=== PATIENT | male | born 1955 | race Caucasian/White ===

== ENCOUNTER 2016-05-11 10:48 | Inpatient (IN) | payer BC, OTHER ==
[2016-05-10 07:36] LABS: HEMATOCRIT 48.2 % (36-54); HEMOGLOBIN 15.7 g/dL (14.0-18.0); MEAN CORPUSCULAR HEMOGLOBIN 30 pg (27-31); MEAN CORPUSCULAR HGB CONC 33 % (32-36); MEAN CORPUSCULAR VOLUME 91 fL (79.0-98.0); PLATELET COUNT (AUTO) 499 K/uL (130-430); RED BLOOD CELL COUNT(AUTO) 5.29 MIL/uL (4.2-6.2)
[2016-05-10 07:38] LABS: WHITE BLOOD COUNT (AUTO) 21.5 K/uL (4.8-10.8)
[2016-05-10 07:48] LABS: ALBUMIN 3.9 g/dL (3.4-4.8); CALCIUM 9.7 mg/dL (8.4-11.0); CREATININE 1.33 mg/dL (0.55-1.30); POTASSIUM 3.8 mmol/L (3.5-5.1); TOTAL BILIRUBIN 0.2 mg/dL (0.0-1.0); TOTAL PROTEIN, SERUM 7.8 g/dL (6.4-8.3)
[2016-05-10 08:22] LABS: ATYPICAL LYMPHOCYTES % 0 % (0-0); BAND % (MANUAL) 5 % (0-6); BASOPHILS % (MANUAL) 0 % (0-2); EOSINOPHILS % (MANUAL) 0 % (0-7); LYMPHOCYTES % (MANUAL) 24 % (20-46); MONOCYTES % (MANUAL) 8 % (0-11)
[~2016-05-11] VITALS: Ht 185.4 cm; Wt 91.6 kg
[~2016-05-11 10:48] MED LIST: ASPI-1063 PO; HYDR25TA4 PO; LOSA50TA3 PO; POTA20TA83 PO; SIMV20TA2 PO
[2016-05-11] MEDS ORDERED: CEFOXITIN 2 GM/DEXTROSE,ISO 50 ML (PREMIX) IV ONE (12:00)
[2016-05-11] MEDS ORDERED: ONDANSETRON HCL 4 MG/2 ML VIAL ONE (14:00)
[2016-05-11] MEDS ORDERED: KETOROLAC TROMETHAMINE 30 MG VIAL ONE (14:00)
[2016-05-11] MEDS ORDERED: ROCURONIUM BROMIDE 10 MG/ML (ZEMURON) ONE (14:00)
[2016-05-11] MEDS ORDERED: SEVOFLURANE 15 MIN GAS INH ONE (14:00)
[2016-05-11] MEDS ORDERED: PROPOFOL 200MG/ 20ML VIAL (DIPRIVAN) IV ONE (14:00)
[2016-05-11] MEDS ORDERED: MIDAZOLAM HCL 5 MG/5 ML VIAL ONE (14:00)
[2016-05-11] MEDS ORDERED: DEXAMETHASONE SOD PHOSPHATE 4 MG/ML VIAL ONE (14:00)
[2016-05-11] MEDS ORDERED: fentaNYL CITRATE 250 MCG/5 ML AMP ONE (14:00)
[2016-05-11] MEDS ORDERED: BUPIVACAINE LIPOSOME/PF 266 MG/20 ML VIAL INFIL ONE (14:45)
[2016-05-11] MEDS ORDERED: LR 1,000 ML IV SCH (16:18)
[2016-05-11] MEDS ORDERED: MEPERIDINE HCL/PF 25 MG/ML DISP.SYRIN IVP PRN (16:30)
[2016-05-11] MEDS ORDERED: HYDROmorphone 2 MG/ML VIAL IVP PRN ×2 (16:30)
[2016-05-11] MEDS ORDERED: HYDROmorphone 1 MG INJ. 1 MG/ML AMPUL IVP PRN (16:30)
[2016-05-11] MEDS ORDERED: ONDANSETRON HCL 4 MG/2 ML VIAL IVP PRN (18:45)
[2016-05-11] MEDS ORDERED: MORPHINE 4 MG/ML INJ. SYRINGE IVP PRN (18:45)
[2016-05-11] MEDS ORDERED: ACETAMINOPHEN 325 MG TABLET PO PRN ×2 (18:45)
[2016-05-11] MEDS ORDERED: HYDROcodone/ACETAMIN 5-325 MG TAB (NORCO/ VICODIN) PO PRN (18:45)
--- NOTE | 2016-05-11 19:32 | NUR ---
Admission Note Received patient from ER with diagnosis of diverticulis. Initial Plan of Care discussed-patient verbalized understanding. Family at bedside. Oriented to room, call light, pain management and safety. Patient recieved form OR. stable, and vital signs stable.
--- NOTE | 2016-05-11 20:20 | NUR ---
Assessment Patient denies any pain or discomfort at this time. Patient is alert and oriented. Patient noted with 5 small abdominal incision, covered in dressing, cdi. Educated patient on deep breathing, able to show proper demonstration. IV site patent with no signs or symptoms of infiltration noted at this time. Educated patient on calling for assistance, verbalized understanding. Call light in hand. Fall and safety precautions in place. Will continue to monitor.
[2016-05-11] MEDS: LR 1,000 ML IV SCH (21:06)
[2016-05-11] MEDS: cefOXitin SODIUM 2 GM in D5W 100 ML IV SCH (21:07)
--- NOTE | 2016-05-11 22:30 | NUR ---
RN ROUNDS Patient in bed at this time resting, Patient has a Cantrell that was present upon admission, draining yellow urine to gravity. Patient denies any pain or discomfort at this time. Call light in hand. Fall and safety precautions in place. Will continue to monitor.
--- NOTE | 2016-05-11 23:33 | NUR ---
RN NOTE Patient stated that he felt like he needed to have a bowel movement. Assisted patient onto a bedpan, patient noted to have blood with clots come out of rectum. Noted to be about 450mL, will page doctor to make him aware.
--- NOTE | 2016-05-11 23:34 | NUR ---
PAGED PAGED TERRY BARTLETT AT [phone] SPOKE WITH SAMMIE.
--- NOTE | 2016-05-11 23:39 | NUR ---
MD CALL BACK Spoke with Dr. Irvin regarding patients blood noted with clots after patient stated he felt like he had to have a bowel movement. Per Dr. Irvin, its normal for patient to have blood with clots come out of rectum after surgery.
[2016-05-12] VITALS (12 sets, daily range): BP systolic 79–143; BP diastolic 57–98; PULSE 77–112; RESP 16–21; TEMP 97–98; O2SAT 94–100
--- NOTE | 2016-05-12 00:38 | NUR ---
RN ROUNDS Patient in bed at this time resting, respirations even and unlabored. No acute distress noted at this time. Vital signs stable. Denies any pain or discomfort at this time. Call light in hand. Fall and safety precautions in place. Will continue to monitor.
--- NOTE | 2016-05-12 01:37 | NUR ---
RN NOTE Patient stated that he felt like he needed to have a bowel movement. Assisted patient onto a bedpan, patient noted to have blood with clots come out of rectum. Cleaned and turned patient. Patient tolerated well. Call light in hand. Fall and safety precautions in place. Will continue to monitor.
--- NOTE | 2016-05-12 02:59 | NUR ---
RN ROUNDS Patient in bed at this time resting, respirations even and unlabored. No acute distress noted at this time. Patient denies any pain or discomfort at this time. Call light in hand. Fall and safety precautions in place. Will continue to monitor.
[2016-05-12] MEDS: cefOXitin SODIUM 2 GM in D5W 100 ML IV SCH ×3 (05:25→22:10)
[2016-05-12 06:23] LABS: CALCIUM 8.2 mg/dL (8.4-11.0); CREATININE 1.3 mg/dL (0.55-1.30); POTASSIUM 4.1 mmol/L (3.5-5.1)
--- NOTE | 2016-05-12 06:38 | NUR ---
CLOSING NOTE Patient in bed at this time. Discontinued rod as ordered per MD. Catheter intact. Gave patient urinal, and explained to him that he is on strict intake and output therefore its important, for him to urinate in the urinal. Patient verbalized understanding. All due meds given, all needs met. Call light in hand. Fall and safety precautions in place. Will endorse to day shift nurse.
[2016-05-12 06:55] LABS: EOSINOPHILS % (AUTO) 0.1 % (0.0-4.0); HEMATOCRIT 35.6 % (36-54); HEMOGLOBIN 12.2 g/dL (14.0-18.0); LYMPHOCYTES # (AUTO) 2.6 K/uL (1.0-5.5); LYMPHOCYTES % (AUTO) 13.3 % (20.5-51.5); MEAN CORPUSCULAR HEMOGLOBIN 31 pg (27-31); MEAN CORPUSCULAR HGB CONC 34 % (32-36); MEAN CORPUSCULAR VOLUME 92 fL (79.0-98.0); MONOCYTES # (AUTO) 1.2 K/uL (0.0-1.0); NEUTROPHILS # (AUTO) 16.1 K/uL (1.8-7.7); NEUTROPHILS % (AUTO) 80.6 % (40.0-70.0); PLATELET COUNT (AUTO) 386 K/uL (130-430); RED BLOOD CELL COUNT(AUTO) 3.89 MIL/uL (4.2-6.2); RED CELL DISTRIBUTION WIDTH 13.5 % (9.0-15.0); WHITE BLOOD COUNT (AUTO) 19.9 K/uL (4.8-10.8)
--- NOTE | 2016-05-12 08:00 | NUR ---
AM INITIAL NOTES PT AAOX4 WITH NO COMPLAINTS OF POST SURGICAL PAIN OR DISCOMFORT. NO SOB, DIFFICULTY BREATHING OR DISTRESS NOTED. MEDICATED PATIENT WITH ZOFRAN BY RN FOR NAUSEA. PT STATES HE DIDN'T SLEEP WELL LAST NIGHT. PT HAVING BLOODY LOOSE STOOLS. BLOOD PRESSURE 86/61 [address] RATE [address]RE[address] LIGHT INSPECTOR IN PLACE. ABDOMINAL INCISIONS COVERED WITH DRESSING. DRESSINGS APPEAR DRY, CLEAN AND INTACT. ENCOURAGED TO USE INCENTIVE SPIROMETER. SAFETY AND FALL PRECAUTIONS ENFORCED. ENCOURAGED TO CALL FOR ASSISTANCE. CALL LIGHT WITHIN REACH. WILL MONITOR.
--- NOTE | 2016-05-12 09:00 | NUR ---
BLOODY STOOL PT AWAKE RESTING IN BED WITH BLOOD PRESSURE STILL ON THE LOW SIDE. PT HAD ANOTHER BLOODY LOOSE STOOL. WILL CALL TO INFORM DR. DAVIS.
--- NOTE | 2016-05-12 09:15 | NUR ---
DR. DAVIS CALLED AND SPOKE WITH MD TO INFORM OF PATIENT CONDITION. NEW ORDER GIVEN. MD WILL COME TO SEE PATIENT.
[2016-05-12] MEDS: POTASSIUM CHLORIDE 20 MEQ TAB.PRT.SR PO SCH (09:23)
[2016-05-12] MEDS: LR 1,000 ML IV SCH ×3 (09:23→16:29)
--- NOTE | 2016-05-12 10:30 | NUR ---
ROUNDS PT ASLEEP BUT EASILY AWAKENED. BLOOD PRESSURE 120/92. STATES HE FEELS MUCH BETTER. PT HAVING ANOTHER BLOODY LOOSE STOOL AGAIN. CLEANED AND KEPT COMFORTABLE. WILL CONTINUE TO MONITOR. ENCOURAGED TO CALL FOR ASSISTANCE.
--- NOTE | 2016-05-12 12:30 | NUR ---
LUNCH PT AWAKE RESTING IN BED. STATES HE DOES NOT FEEL LIKE HAVING HIS CLEAR LIQUID FLUIDS AT THIS TIME. ENCOURAGED TO DRINK FLUIDS. WILL MONITOR.
--- NOTE | 2016-05-12 15:00 | NUR ---
ROUNDS PT ASLEEP. NO SIGNS OF FACIAL GRIMACING FOR PAIN OR DISCOMFORT. NO DISTRESS NOTED. CALL LIGHT WITHIN REACH. WILL CONTINUE TO MONITOR.
[2016-05-12] MEDS: LOSARTAN POTASSIUM 50 MG TABLET (COZAAR) PO SCH (15:37)
[2016-05-12] MEDS: HYDROCHLOROTHIAZIDE 25 MG TABLET (HCTZ) PO SCH (15:38)
--- NOTE | 2016-05-12 18:30 | NUR ---
CLOSING NOTES PT ASLEEP BUT EASILY AWAKENED. NO COMPLAINTS OF PAIN OR DISCOMFORT. ASSISTED TO RESTROOM FOR BRP. PT HAD ANOTHER BLOODY LOOSE STOOL. NO DISTRESS NOTED. ASSISTED BACK TO BED AND KEPT COMFORTABLE. WILL ENDORSE CARE TO INCOMING NURSE.
--- NOTE | 2016-05-12 19:30 | NUR ---
Initial note pt. received aaox4, no s/s of sob or distress noted at this time. VSS. pt. states he is having some pain, will medicate for pain as ordered. Pt. instructed to use to incentive spirometer, hourly. verbalizes understanding, and returns demonstration of 1500 ml. IV access noted to left forearm, no redness or swelling noted at the site. IV fluids infusing well as ordered. SCDs are at the bedside but not in place, pt. states he does not want them on at this time. will ask at a later time if he would like me to apply them, educated the pt. on the importance of their use, verbalizes understanding. plan of care discussed with the pt., verbalizes understanding. will continue to monitor for any changes. safety and fall precautions in place. call light in reach, bed in lowest position, bed alarm on. Addendum: 05/12/16 at 2355 by Jania Gil RN abdominal dressing noted, dry and intact. no active bleeding noted.
--- NOTE | 2016-05-12 22:00 | NUR ---
rounds pt. resting in bed. provided with vanilla pudding for a snack. pt states he was assisted to the restroom to have a bowel movement, instructed to call for any assistance if he needs to go again, verbalizes understanding. IV fluids infusing well. pt. does not wish to have SCDs on at this time. will continue to monitor for any changes. safety and fall precautions in place, call light in reach, bed alarm on.
[2016-05-12] MEDS: HYDROcodone/ACETAMIN 5-325 MG TAB (NORCO/ VICODIN) PO PRN (22:12)
[2016-05-12] MEDS: ZOLPIDEM TARTRATE 5 MG TABLET PO PRN (23:08)
--- NOTE | 2016-05-13 00:06 | NUR ---
rounds pt. resting in bed with eyes closed. chest rise and fall noted. no s/s of sob or distress noted. IV fluids infusing well as ordered. will continue to monitor for any changes. safety and fall precautions in place. call light in reach, bed alarm on.
[2016-05-13 00:23] VITALS: BP 115/72; PULSE 96; RESP 17; TEMP 97.5; O2SAT 98
[2016-05-13] MEDS: LR 1,000 ML IV SCH ×4 (00:47→21:50)
--- NOTE | 2016-05-13 02:03 | NUR ---
rounds pt. resting in bed with eyes closed. chest rise and fall noted. no s/s of sob or distress noted at this time. will continue to monitor the pt. for any changes. safety and fall precautions in place. call light in reach, bed alarm on.
--- NOTE | 2016-05-13 04:05 | NUR ---
rounds pt. resting in bed with eyes closed. chest rise and fall noted. no s/s of sob or distress. no facial grimacing indicating pain. IV fluids infusing well as ordered. will continue to monitor for any changes. safety and fall precautions in place. call light in reach, bed alarm on.
[2016-05-13 04:06] VITALS: BP 112/77; PULSE 87; RESP 18; TEMP 97; O2SAT 97
[2016-05-13] MEDS: cefOXitin SODIUM 2 GM in D5W 100 ML IV SCH ×3 (05:37→21:50)
[2016-05-13 06:17] LABS: BASOPHILS % (AUTO) 0.2 % (0.0-2.0); EOSINOPHILS # (AUTO) 0.1 K/uL (0.0-0.4); EOSINOPHILS % (AUTO) 0.3 % (0.0-4.0); LYMPHOCYTES # (AUTO) 4.9 K/uL (1.0-5.5); MEAN CORPUSCULAR HEMOGLOBIN 31 pg (27-31); MEAN CORPUSCULAR HGB CONC 34 % (32-36); MEAN CORPUSCULAR VOLUME 92 fL (79.0-98.0); MONOCYTES # (AUTO) 1.6 K/uL (0.0-1.0); MONOCYTES % (AUTO) 8.9 % (1.7-9.3); NEUTROPHILS # (AUTO) 11.6 K/uL (1.8-7.7); NEUTROPHILS % (AUTO) 63.6 % (40.0-70.0); PLATELET COUNT (AUTO) 330 K/uL (130-430); RED BLOOD CELL COUNT(AUTO) 2.93 MIL/uL (4.2-6.2); RED CELL DISTRIBUTION WIDTH 13.6 % (9.0-15.0); WHITE BLOOD COUNT (AUTO) 18.2 K/uL (4.8-10.8)
[2016-05-13 06:42] LABS: HEMOGLOBIN 9.2 g/dL (14.0-18.0)
--- NOTE | 2016-05-13 06:53 | NUR ---
closing note pt. resting in bed with eyes closed. chest rise and fall noted. no s/s of sob or distress noted. no facial grimacing indicating any pain. IV fluids infusing well as ordered. all necessary needs were met throughout the shift. safety and fall precautions were maintained. will endorse care to AM nurse. call light in reach, bed alarm on.
--- NOTE | 2016-05-13 08:00 | NUR ---
am notes pt. received aaox4, no s/s of sob or distress noted at this time. pt. states he is having some pain but tolerable. refused medication. Pt. instructed to use to incentive spirometer, hourly. verbalizes understanding, and returns demonstration of 200 ml. IV access noted to left forearm, no redness or swelling noted at the site. IV fluids infusing well as ordered. SCDs placed informed about action and benefits.pt agreed to placed.plan of care discussed with the pt., verbalizes understanding. will continue to monitor for any changes. safety and fall precautions in place. call light in reach, bed in lowest position, bed alarm on.
[2016-05-13 08:15] VITALS: BP 137/88; PULSE 95; RESP 17; TEMP 97.8; O2SAT 98
[2016-05-13] MEDS: HYDROCHLOROTHIAZIDE 25 MG TABLET (HCTZ) PO SCH (08:26)
[2016-05-13] MEDS: LOSARTAN POTASSIUM 50 MG TABLET (COZAAR) PO SCH (08:27)
[2016-05-13] MEDS: POTASSIUM CHLORIDE 20 MEQ TAB.PRT.SR PO SCH (08:27)
[2016-05-13] MEDS: HYDROcodone/ACETAMIN 5-325 MG TAB (NORCO/ VICODIN) PO PRN ×3 (09:38→19:42)
[2016-05-13 11:21] VITALS: BP 110/73; PULSE 86; RESP 20; TEMP 98; O2SAT 95
--- NOTE | 2016-05-13 12:00 | NUR ---
PATIENT RESTING: Patient resting quietly. No acute distress noted. Vital signs within normal range.
--- NOTE | 2016-05-13 14:27 | NUR ---
surgeon consult: seen by dr. pierre with new order. Addendum: 05/13/16 at 1838 by Raghu Loaiza RN MD removed dressing stated keep open to air.
[2016-05-13] MEDS ORDERED: HYDROCORTISONE ACETATE 1 SUPP (ANUSOL HC) RC ONE (14:30)
--- NOTE | 2016-05-13 15:42 | NUR ---
PHYSICAL THERAPY CO-SIGN The Physical Therapy Progress Notes documented by Potato Bucker have been reviewed. I CONCUR W/SENIOR NETWORK ENGINEER NOTE; CONT PER TX PLAN Reviewed/Co-Signed by: Pilar Eli PT Documentation Done by: RYAN RESTREPO SENIOR NETWORK ENGINEER Addendum: 05/13/16 at 1542 by Pilar Eli PT Amended: Links added.
--- NOTE | 2016-05-13 15:50 | NUR ---
pt coughing, weak. seem in pain. refusing pain medication. education given to patient. agreed to received norco 1 tab po.
[2016-05-13 16:01] VITALS: BP 106/84; PULSE 98; RESP 20; TEMP 98.4; O2SAT 93
--- NOTE | 2016-05-13 16:01 | NUR ---
Nutrition Update Sergio Scale 18 noted Pt was admitted with diverticulitis of large intestine w/ perforatio Diet: soft (low fiber/bland) BMI: 26.7 kg/m2 RD to follow up per nutrition care standards.
--- NOTE | 2016-05-13 17:00 | NUR ---
reassessment done. patient verbalized pain still there but subside. talking to family at bedside. episode of weak cough noted. advice to use IS. pt verbalized understanding. will monitor.
--- NOTE | 2016-05-13 18:41 | NUR ---
all needs mets. vital signs stable,afebrile. pt resting. will endorsed to incoming nurse.
[2016-05-13 19:40] VITALS: BP 127/77; PULSE 91; RESP 16; TEMP 97.8; O2SAT 95
--- NOTE | 2016-05-13 19:40 | NUR ---
Initial note pt. received aaox4, no s/s of sob or distress noted at this time. VSS. pt. states he is having abdominal pain 08/19, will medicate for pain as ordered. Pt. instructed to use to incentive spirometer, hourly. verbalizes understanding, and returns demonstration of 2000 ml. pt. has a dry cough, encouraged to splint with pillow over abdominal incision. verbalizes understanding. abdominal incisions are free of any active bleeding. IV access noted to left forearm, no redness or swelling noted at the site. IV fluids infusing well as ordered. 500 cc of clear light yellow urine emptied from urinal. provided pt. with ice water upon request. SCDs have been applied bilaterally. plan of care discussed with the pt., verbalizes understanding. will continue to monitor for any changes. safety and fall precautions in place. call light in reach, bed in lowest position, bed alarm on.
[2016-05-13] MEDS: ZOLPIDEM TARTRATE 5 MG TABLET PO PRN (21:49)
--- NOTE | 2016-05-13 22:12 | NUR ---
ROUNDS PT. RESTING IN BED, NO S/S OF SOB OR DISTRESS NOTED. GAVE PT. SERENE PER HIS REQUEST ORDERED FOR SLEEP. IV FLUIDS INFUSING WELL ORDERED. 300 CC OF CLEAR YELLOW URINE EMPTIED FROM URINAL. SCDS REMOVED PER PT. REQUEST SO HE CAN SLEEP. WILL HAVE HIM PUT THEM ON WHEN HE WAKES. PT. CONTINUE TO HAVE A DRY COUGH, INSTRUCTED PT. ON THE IMPORTANCE OF SPLINTING WITH A PILLOW. VERBALIZES UNDERSTANDING. PT. USING THE INCENTIVE SPIROMETER HOURLY WHILE AWAKE. WILL CONTINUE TO MONITOR. SAFETY AND FALL PRECAUTIONS IN PLACE. CALL LIGHT IN REACH, BED ALARM ON.
[2016-05-14] VITALS (7 sets, daily range): BP systolic 139–155; BP diastolic 76–102; PULSE 88–99; RESP 16–20; TEMP 97.8–98.6; O2SAT 94–98
--- NOTE | 2016-05-14 | NUR ---
rounds assisted pt to restroom where he had a bowel movement, no blood was noted in stool, pt. states this is his first BM without blood since his surgery on 05/11. changed linens on pt. bed since they became soiled. assisted pt. back to bed and in a comfortable position supported well with pillows. IV fluids infusing at ordered rate. will continue to monitor. safety and fall precautions in place. call light in reach.
--- NOTE | 2016-05-14 02:56 | NUR ---
rounds pt. resting in bed with eyes closed. chest rise and fall noted. no s/s of sob or distress. will continue to monitor. safety and fall precautions in place. call light in reach.
[2016-05-14] MEDS: HYDROcodone/ACETAMIN 5-325 MG TAB (NORCO/ VICODIN) PO PRN ×4 (04:06→19:54)
--- NOTE | 2016-05-14 04:17 | NUR ---
rounds pt. stated he was having pain abdominal pain 08/19, administered pain medication as ordered. will reassess. warm blanket provided per pt. request. assisted to a comfortable position in bed. pt. continues to have dry cough, using pillow to splint. 500 cc clear yellow urine emptied from urinal. IV fluids infusing well as ordered, will continue to monitor for any changes. safety and fall precautions in place, call light in reach.
[2016-05-14] MEDS: cefOXitin SODIUM 2 GM in D5W 100 ML IV SCH ×3 (06:14→22:04)
[2016-05-14] MEDS: LR 1,000 ML IV SCH ×2 (06:19→07:55)
[2016-05-14 06:40] LABS: BASOPHILS % (AUTO) 0.1 % (0.0-2.0); EOSINOPHILS # (AUTO) 0.2 K/uL (0.0-0.4); EOSINOPHILS % (AUTO) 1.2 % (0.0-4.0); HEMATOCRIT 22.6 % (36-54); HEMOGLOBIN 7.8 g/dL (14.0-18.0); LYMPHOCYTES # (AUTO) 3.2 K/uL (1.0-5.5); LYMPHOCYTES % (AUTO) 21.9 % (20.5-51.5); MEAN CORPUSCULAR HEMOGLOBIN 31 pg (27-31); MEAN CORPUSCULAR HGB CONC 35 % (32-36); MEAN CORPUSCULAR VOLUME 90 fL (79.0-98.0); MONOCYTES # (AUTO) 1.2 K/uL (0.0-1.0); MONOCYTES % (AUTO) 8.5 % (1.7-9.3); NEUTROPHILS % (AUTO) 68.3 % (40.0-70.0); PLATELET COUNT (AUTO) 239 K/uL (130-430); RED CELL DISTRIBUTION WIDTH 13.7 % (9.0-15.0); WHITE BLOOD COUNT (AUTO) 14.6 K/uL (4.8-10.8)
[2016-05-14 06:57] LABS: ALBUMIN 2.3 g/dL (3.4-4.8); CREATININE 1.13 mg/dL (0.55-1.30); POTASSIUM 3.4 mmol/L (3.5-5.1); TOTAL BILIRUBIN 0.4 mg/dL (0.0-1.0); TOTAL PROTEIN, SERUM 4.8 g/dL (6.4-8.3)
--- NOTE | 2016-05-14 06:57 | NUR ---
closing note pt. resting in bed with eyes closed. chest rise and fall noted. no s/s of sob or distress noted. no facial grimacing indicating any pain. IV fluids infusing well as ordered. all necessary needs were met throughout the shift. safety and fall precautions were maintained. will endorse care to AM nurse. call light in reach, bed in lowest position.
--- NOTE | 2016-05-14 07:56 | NUR ---
AM INITIAL NOTES PT AAOX4 COMPLAINTS OF POST SURGICAL ABDOMINAL PAIN 08/19. NO SOB, DIFFICULTY BREATHING OR DISTRESS NOTED. ABDOMINAL INCISIONS COVERED WITH STERI STRIPS INTACT. NO DRAINAGE NOTED. ENCOURAGED TO USE INCENTIVE SPIROMETER AND AMBULATION. FALL AND SAFETY PRECAUTIONS ENFORCED. PT REFUSED TO HAVE BED ALARM ARMED AND WILL CALL FOR ASSISTANCE. WAGE ANALYST IN PLACE. TILL MONITOR.
[2016-05-14] MEDS: POTASSIUM CHLORIDE 20 MEQ TAB.PRT.SR PO SCH (08:24)
[2016-05-14] MEDS: LOSARTAN POTASSIUM 50 MG TABLET (COZAAR) PO SCH (08:24)
[2016-05-14] MEDS: HYDROCHLOROTHIAZIDE 25 MG TABLET (HCTZ) PO SCH (08:25)
--- NOTE | 2016-05-14 08:28 | NUR ---
NORCO MEDICATED PT WITH NORCO 5-325MG 1 TAB FOR ABDOMINAL PAIN 08/19. EDUCATED ABOUT FALL AND SAFETY. PT VERBALIZED UNDERSTANDING. ENCOURAGED TO CALL FOR ASSISTANCE. CALL LIGHT WITHIN REACH.
[2016-05-14] MEDS ORDERED: POTASSIUM CHLORIDE 20 MEQ/PKT PACKET PO ONE (10:00)
--- NOTE | 2016-05-14 10:00 | NUR ---
Rounds Pt awake resting in bed. No complaints of pain or discomfort at this time. No distress noted. Kept comfortable. Encouraged to call for assistance. Call light within reach. Will monitor.
--- NOTE | 2016-05-14 11:00 | NUR ---
Ambulate Pt ambulating inside room and personally did his hygiene care and sponge bath at the sink. Complaints of mild discomfort but tolerable. States he feels fine. Pt still has non stop cough. Dr. Irvin made aware. Encouraged to call for assistance. Will monitor.
[2016-05-14] MEDS: SOD FERRIC GLUC COMPLEX/SUC 125 MG in NS 100 ML IV SCH ×2 (12:00→18:09)
--- NOTE | 2016-05-14 12:47 | NUR ---
[place] Pt complaints of abdominal pain 08/19. Administered [place] 5-325mg 1 tab. Repositioned and kept comfortable. Informed to call for assistance. Re-educated about fall and safety precautions. Call light within reach. Pt refused to have bed alarm armed.
--- NOTE | 2016-05-14 13:18 | NUR ---
ferlicit not available at this time.
--- NOTE | 2016-05-14 13:20 | NUR ---
Spoke to Will, radioactivity technician to follow up on Ferrtruptiit. States medication still not available. Medication will be coming from [facility].
--- NOTE | 2016-05-14 15:20 | NUR ---
Rounds Pt asleep. No significant changes noted. Call light within reach. Will monitor.
--- NOTE | 2016-05-14 17:45 | NUR ---
Start of Blood Transfusion Pt awake resting in bed still coughing. Complaints of mild pain to post surgical abdominal site. No distress noted. Start of PRBC transfusion. Vital signs: T-98.2, P-93, R-20, BP-130/82. Kept comfortable. Will monitor.
--- NOTE | 2016-05-14 18:07 | NUR ---
15 Minutes After Start of PRBC No complaints of pain or discomfort. No distress noted. No signs of allergic reaction after 15 minutes from start of transfusion. Vital signs: T-98.4, P-98, R-20, BP-140/91. Kept comfortable. Educated about transfusion reactions. Encouraged to call for any signs and symptoms of reaction. Also encouraged to call for any assistance. Call light within reach. Will monitor.
--- NOTE | 2016-05-14 18:45 | NUR ---
CLOSING NOTES PT AWAKE WITH FAMILY AT BEDSIDE. BLOOD TRANSFUSION STILL INFUSING. PT CONTINUES TO COUGH. WILL CALL DR. DAVIS FOR ORDERS. KEPT COMFORTABLE. WILL ENDORSE CARE TO INCOMING NURSE.
--- NOTE | 2016-05-14 18:54 | NUR ---
paged for Dr Irvin, dialed . s/w Tatyana.
--- NOTE | 2016-05-14 19:10 | NUR ---
DR. DAVIS CALLED AND SPOKE WITH MD. INFORMED OF PATIENT CONDITION. NEW ORDERS GIVEN.
[2016-05-14] MEDS ORDERED: ALBUTEROL SULFATE 0.083% 2.5 MG/3 ML VIAL.NEB INH PRN (19:45)
--- NOTE | 2016-05-14 19:57 | NUR ---
notes received the pt from the day nurse.pt a/a/ox4 blood transfusion infusing well with no adverse reaction noted.pt c/o abdominal pain 5 and was medicated with norco po.incisions to abdomen are clean and dry,steri stips intact.ivs to rt upper arm and lt forearm intact,no redness or swelling noted.vs taken.call light within reach,safety measures in progress.continue to monitor.
--- NOTE | 2016-05-14 20:35 | NUR ---
notes blood transfusion completed,no adverse reaction noted.pt voided via the urinal 300cc clear yellow urine.continue to monitor
[2016-05-14] MEDS ORDERED: FLUTICASONE 100 mCg/SALMETEROL 50 mCg DISKUS W.DEV INH SCH (21:00)
--- NOTE | 2016-05-14 23:15 | NUR ---
notes pt sleeping.call light within reach.continue to monitor.
[2016-05-15 00:32] VITALS: BP 141/91; PULSE 94; RESP 16; TEMP 98.6; O2SAT 93
--- NOTE | 2016-05-15 01:28 | NUR ---
notes pt remains asleep,no distress noted.continue to monitor.
[2016-05-15] MEDS: LR 1,000 ML IV SCH ×2 (01:43→08:34)
--- NOTE | 2016-05-15 03:36 | NUR ---
notes pt sleeping.no distress noted ,continue to monitor.
[2016-05-15 04:02] VITALS: BP 129/90; PULSE 86; RESP 20; TEMP 97.8; O2SAT 94
[2016-05-15] MEDS: cefOXitin SODIUM 2 GM in D5W 100 ML IV SCH ×2 (05:18→14:00)
--- NOTE | 2016-05-15 05:30 | NUR ---
notes pt remains asleep,call light within reach.continue to monitor.
--- NOTE | 2016-05-15 06:12 | NUR ---
closing notes pt resting with no complaints will endorse the care of the pt to the day nurse.
[2016-05-15 06:55] LABS: BASOPHILS % (AUTO) 0.2 % (0.0-2.0); EOSINOPHILS # (AUTO) 0.4 K/uL (0.0-0.4); EOSINOPHILS % (AUTO) 2.8 % (0.0-4.0); HEMATOCRIT 28.9 % (36-54); HEMOGLOBIN 9.8 g/dL (14.0-18.0); LYMPHOCYTES # (AUTO) 3.1 K/uL (1.0-5.5); LYMPHOCYTES % (AUTO) 20.4 % (20.5-51.5); MEAN CORPUSCULAR HEMOGLOBIN 31 pg (27-31); MEAN CORPUSCULAR HGB CONC 34 % (32-36); MEAN CORPUSCULAR VOLUME 92 fL (79.0-98.0); MONOCYTES # (AUTO) 1.4 K/uL (0.0-1.0); MONOCYTES % (AUTO) 8.9 % (1.7-9.3); NEUTROPHILS # (AUTO) 10.3 K/uL (1.8-7.7); NEUTROPHILS % (AUTO) 67.7 % (40.0-70.0); PLATELET COUNT (AUTO) 254 K/uL (130-430); RED BLOOD CELL COUNT(AUTO) 3.13 MIL/uL (4.2-6.2); RED CELL DISTRIBUTION WIDTH 13.9 % (9.0-15.0); WHITE BLOOD COUNT (AUTO) 15.2 K/uL (4.8-10.8)
--- NOTE | 2016-05-15 07:36 | NUR ---
AM ROUNDS: No s/s of distress noted. Will continue to monitor.
[2016-05-15 08:29] VITALS: BP 168/98; PULSE 92; RESP 20; TEMP 97.9
[2016-05-15] MEDS: POTASSIUM CHLORIDE 20 MEQ TAB.PRT.SR PO SCH (08:33)
[2016-05-15] MEDS: HYDROCHLOROTHIAZIDE 25 MG TABLET (HCTZ) PO SCH (08:34)
[2016-05-15] MEDS: LOSARTAN POTASSIUM 50 MG TABLET (COZAAR) PO SCH (08:34)
[2016-05-15] MEDS: HYDROcodone/ACETAMIN 5-325 MG TAB (NORCO/ VICODIN) PO PRN (09:22)
--- NOTE | 2016-05-15 10:09 | NUR ---
PATIENT RESTING: Patient resting quietly. No acute distress noted. Vital signs within normal range.
[2016-05-15] MEDS: SOD FERRIC GLUC COMPLEX/SUC 125 MG in NS 100 ML IV SCH (11:54)
[2016-05-15 12:00] VITALS: BP 125/77; PULSE 92; RESP 20; TEMP 98.8; O2SAT 98
--- NOTE | 2016-05-15 12:14 | NUR ---
PATIENT RESTING: Patient resting quietly. No acute distress noted. Vital signs within normal range.
[2016-05-15 13:23] VITALS: BP 125/77; PULSE 92; RESP 20; TEMP 98.8; O2SAT 99
[2016-05-15] MEDS ORDERED: ZOLP5TAB2 PO (13:24)
[2016-05-15] MEDS ORDERED: HYDR-1189 PO (13:24)
[2016-05-15] MEDS ORDERED: DOCU-144 PO (13:28)
[2016-05-15] MEDS ORDERED: AMOX-426 PO (13:28)
--- NOTE | 2016-05-15 14:08 | NUR ---
PATIENT RESTING: Patient resting quietly. No acute distress noted. Vital signs within normal range.
--- NOTE | 2016-05-15 14:30 | NUR ---
D/C Patient Patient given medication reconciliation form and D/C instructions. Exit Care provided. Patient verbalized understanding. MD discussed with patient the results and treatment provided. Ambulatory with steady gait for discharge to home. Patient in stable condition, ID band removed. IV catheter removed, intact and dressing applied, no active bleeding. Rx of augmentin,colace,norco,ambien given. Patient educated on pain management. All belongings sent with patient.
--- NOTE | 2016-05-15 16:01 | NUR ---
PHYSICAL THERAPY CO-SIGN The Physical Therapy Progress Notes documented by Material Damage Appraiser have been reviewed. Reviewed/Co-Signed by: Talita Mao Documentation Done by:FRANCISCA RAMIREZ PTA POC REVIEWED W/ ASSOCIATE DIRECTOR; WILL BENEFIT W/ P.T. 05/11/16 JL NEAL SIGMOID COLON RESECTION Addendum: 05/15/16 at 1602 by Talita Mao PT Amended: Links added.
== END 2016-05-15 14:30 | disposition home or self-care (01) | DRG 330 ==
LOC: SDS 10:48 → SMU 10:49 → SDS 14:54 → MERGE 14:54 → SMU 14:54 → STU 20:20
PROVIDERS: ADMIT Surgery; ATTEND Surgery
PROC: 8E0W4CZ Robotic Assisted Procedure of Trunk Region, Percutaneous Endoscopic Approach (ICD-10-PCS; principal; 2016-05-14)
PROC: 0DTN4ZZ Resection of Sigmoid Colon, Percutaneous Endoscopic Approach (ICD-10-PCS; 2016-05-14)
PROC: 30233N1 Transfusion of Nonautologous Red Blood Cells into Peripheral Vein, Percutaneous Approach (ICD-10-PCS; 2016-05-14)
DX: K57.30 Diverticulosis of large intestine without perforation or abscess without bleeding (principal); D62 Acute posthemorrhagic anemia; K66.0 Peritoneal adhesions (postprocedural) (postinfection); I10 Essential (primary) hypertension; I25.10 Atherosclerotic heart disease of native coronary artery without angina pectoris
CPT/HCPCS: 36415; 71020-TC; 80048; 80053; 82962; 83880; 85007; 85025; 85027; 86886; 86900; 86901; 86920; 87081; 88305; 88307; 93005; 97110-GP; 97116-GP; 97530-GP; C1727; C9290; E0190; J0694; J1100; J1885; J2250; J2405; J2704; J2916; J3010; J7050; J7060; J7120; P9021